=== PATIENT | female | born 1970 | race Caucasian/White ===

== ENCOUNTER 2019-08-08 07:06 | Day surgery (SDC) | payer BC, OTHER ==
[~2019-08-08] VITALS: Ht 170.2 cm; Wt 133.8 kg
[~2019-08-08 07:06] MED LIST: IBUPROFEN200 M1 PO; MULTI VITAMIN1 EACH PO; TYLENOL325 M1 PO; ZYRTEC10 M5 PO
[2019-08-08 07:49] VITALS: BP 130/59
--- NOTE | 2019-08-08 08:10 | EKG ---
[facility] [place] [address] ELECTROCARDIOGRAM REPORT Name: HENRY ZALDIVAR Room #: [facility] [place] [address] M.R.#: [id number] Admission: 08/08/19 Attend Phys: Ross Goodwin MD Discharge: Date of : 66 Report #: [id number] THIS REPORT FOR: cc: Herrera Tucker MD, Greg L. MD Lundgren,Amrit Mccann MD [facility] ~ THIS REPORT FOR: //name// [facility] Test Date: 2019-08-08 Test Time: 07:47:40 Pat Name: HENRY ZALDIVAR Department: Room: [facility] 2 Gender: F [employer] Accounts Manager: LIG[place] : 1970 Requested By: Ross Goodwin Order Number: [id number] MD: Amrit Johns Measurements Intervals [place] Rate: 64 P: 26 UT: 157 QRS: 6 QRSD: 94 T: 3 QT: 441 QTc: 455 Interpretive Statements Sinus rhythm No significant abnormality No previous ECG available for comparison Electronically Signed On 08-08-2019 8:08:37 CDT by Amrit Johns [email or web address] <ELECTRONICALLY SIGNED> By: Amrit Johns MD, [facility] 05/807 6 Amrit Johns MD, [facility] /EPI
[2019-08-08 11:34] VITALS: BP 130/59
--- NOTE | 2019-08-10 10:13 | PATH ---
[facility] [address] [place] [address] PATHOLOGY RPT PROCEDURE Name: KRISTEN ZALDIVAR Room #: [facility] M.R.#: [id number] Admission: 08/08/19 Date of : 66 Discharge: 08/08/19 Report #: [id number] Path Case #: [id number] [facility] Accession Number: [id number] . 01 Material submitted: . hip - LEFT TOTAL HIP SYNOVIUM. Modifiers: left . 01 Clinical history: . Presence of left artificial hip joint; pain in left hip . 02 Diagnosis: Synovium, left, total hip arthroscopy and biopsy: - Chronic inflammation along with reactive synovial hyperplasia as well as calcifications. - Negative for increase in acute inflammation/neutrophils within the infiltrate. (IUV/db; 08/09/2019) LBQ 08/09/2019 1341 Local . 02 Electronically signed: . Sue Vasquez MD, Pathologist NPI- [id number] . 01 Gross description: . The specimen is received in formalin, labeled "Kristen Zaldivar, left total hip synovium". Received are multiple segments of pale lou tissue measuring 2.0 x 1.2 x 0.3 cm in aggregate dimensions. The specimen is filtered and entirely submitted in cassette A1. (CAA; 08/08/2019) QA/QA 08/08/2019 1525 Local . 02 Pathologist provided ICD-10: M65.9 . 02 CPT . 788285 Specimen Comment: A courtesy copy of this report has been sent to [phone] Specimen Comment: Report sent to Specimen Comment: A duplicate report has been generated due to demographic updates. Performed at: [address] [id number] MD Abdon Carlos MD Phone: [phone] Performed at: [address] [id number] [address] [address] PATHOLOGY RPT PROCEDURE Name: KRISTEN ZALDIVAR Room #: [facility] M.R.#: [id number] Admission: 08/08/19 Date of : 66 Discharge: 08/08/19 Report #: [id number] Path Case #: [id number] MD Sue Vasquez MD Phone: [phone]
--- NOTE | 2019-08-11 13:46 | O ---
[address] [address] OPERATIVE REPORT Name: HENRY ZALDIVAR Room #: DEP [facility]..#: [id number] Admission: 08/08/19 Attend Phys: Ross Goodwin MD Discharge: 08/08/19 Date of : 66 Report #: [id number] THIS REPORT FOR: cc: Herrera Tucker MD, Greg L. MD McCabe,Ross López MD ~ CC: Herrera Goodwin DATE OF SERVICE: 08/08/2019 SERVICE: Orthopedics. FACILITY: [facility]. SURGEON: Ross Goodwin MD QUARTZ MINER: Dana Hurst NP. INDICATION FOR QUARTZ MINER: Extremity positioning, arthroscope management, assistance with the arthroscopic procedure. PREOPERATIVE DIAGNOSES: 1. Left hip pain. 2. Left hip iliopsoas tendinitis. 3. Status post left total hip arthroplasty. POSTOPERATIVE DIAGNOSES: 1. Left hip pain. 2. Left hip iliopsoas tendinitis. 3. Status post left total hip arthroplasty. 4. Left hip synovitis. PROCEDURES: 1. Left hip arthroscopic iliopsoas tendon lengthening. 2. Left hip arthroscopic debridement with partial synovectomy. COMPLICATIONS: None. DRAINS: None. SPECIMENS: Synovitis biopsied and sent for permanent pathology. FINDINGS: 1. Stable implants without signs of infection. 2. Normal articulation with an area of some synovium that appeared to being [address] [address] OPERATIVE REPORT Name: HENRY ZALDIVAR Room #: DEP [facility].#: [id number] Admission: 08/08/19 Attend Phys: Ross Goodwin MD Discharge: 08/08/19 Date of : 66 Report #: [id number] incarcerated along the edge of the articulation anterolaterally. This was resected. 3. The anterolateral capsule was tight and in contact with the femoral prosthesis, I released the most distal portion of the capsule off of the acetabular side. 4. Successful iliopsoas tendon lengthening. HISTORY AND INDICATIONS: The patient is a 49-year-old female who has had bilateral total hip replacements several years ago. The right side has done very well, but the left side has had some problems from early on. She has had specifically pain with hip flexion that localized the iliopsoas tendon and she had diagnostic workup that was suggestive of iliopsoas tendinitis secondary to impingement on the prosthesis. The lab and radiographic workup was negative for component loosening, infection or malposition. We had discussion about treatment options including risks, benefits, alternatives and indications. Risks include but not limited to pain, bleeding, infection, injury to nerves or blood vessels, persistent pain despite surgical intervention, failure of the procedure, need for further surgery including revision as well as complications related to anesthesia such as stroke, heart attack, pulmonary complications, thromboembolic disease and . Despite these risks, she wished to proceed. PROCEDURE IN DETAIL: After left lower extremity was correctly identified in the preoperative holding area as the operative extremity, the patient was taken to the operating room where general anesthesia was induced without complication. She was padded appropriately. Prophylactic antibiotics were administered at appropriate time. The left leg was then prepped and draped in standard sterile fashion. Timeout procedure performed. No traction was utilized for this arthroscopy of a total hip arthroplasty. Under C-arm localization, 2 portals were established with an anterolateral and anteromedial working portal to the base of the femoral prosthesis at the head and neck junction and then triangulation was utilized and then access was obtained to the hip joint itself. The capsule was normal further distally, but proximally it was rather tough and there were some loose bony fragments adjacent to it. These were removed and the capsule was partially released down off of the acetabular rim. This was done after we had obtained access to that portion of the hip. The synovitis that was present at the trunnion was biopsied and sent for permanent pathology, but there are no signs of any infection. The shaver was used as was the electrocautery to perform a debridement working around the femoral neck until we could see the entire portion of the neck of the femoral component as well as the head component. The polyethylene articulation was intact and was sitting well. On visualization of the articulation, the synovium was seen to be sitting between the femoral head component and the polyethylene liner, which could be a source of pain so this was resected with a shaver until there was no further incarceration. I continued up with the debridement and arthroscopy up to the acetabular rim. The [place] portion of the [address] [address] OPERATIVE REPORT Name: HENRY ZALDIVAR Room #: DEP [facility] MUriah#: [id number] Admission: 08/08/19 Attend Phys: Ross Goodwin MD Discharge: 08/08/19 Date of : 66 Report #: [id number] cup was well covered. The more lateral portion of the cup was under covered and this is where the capsule was contacting the rim. The cup was secure and there were no signs of loosening. The iliopsoas tendon was released during this performing an iliopsoas musculotendinous junction lengthening procedure at the acetabular rim level. All soft tissue adhesions were released. After this was completed, I finalized the capsular work and ensure that adequate evaluation over the lateral shoulder was achieved of the total hip replacement. At this point, the debridement was completed, the instruments were removed. The portal sites were closed. Sterile dressing was applied. The patient was awakened from anesthesia and taken to recovery room in stable condition. No complications. All counts were recorded as correct. <ELECTRONICALLY SIGNED> By: Ross Goodwin MD 08/11/19 1346 1124 1226 Ross Goodwin MD /jess
== END 2019-08-08 13:15 | disposition home or self-care (01) ==
LOC: TBA 07:06 → OR 07:06
DX: M25.552 Pain in left hip (principal); M76.892 Other specified enthesopathies of left lower limb, excluding foot; M65.852 Other synovitis and tenosynovitis, left thigh; Z98.890 Other specified postprocedural states; Z79.899 Other long term (current) drug therapy; Z96.643 Presence of artificial hip joint, bilateral
CPT/HCPCS: 50010; 50101; 50386; 51538; 52304; 52313; 56524; 56527; 57092; 57103; 62110; 62900; 70005